=== PATIENT | female | born 1995 | race Caucasian/White ===

== ENCOUNTER 2016-03-01 20:14 | Emergency (ER) | payer OTHER ==
--- NOTE | 2016-03-01 22:46 | ED CLINICAL REPORT ---
Clinical Report - Physicians/Mid Levels [facility] [address] [place] [address] 03/01/2016 20:15 Patient: GABRIELA KNOX Arrived- By private vehicle. Historian- patient. HISTORY OF PRESENT ILLNESS Chief Complaint: THREE SEIZURES. This occurred today. Patient was last known well (this morning). Is no longer seizing. She has recovered. Not post-ictal in the emergency department. Seizure was witnessed. Seizure activity was brief and lasted minutes. No loss of consciousness, incontinence, apnea noted, confusion post-ictally or speech difficulty post-ictally. No weakness post-ictally, numbness post-ictally or headache post-ictally. Generalized motor activity observed. Not obtunded post-ictally. Did not lose pulse. No injuries noted. Did not recently change anticonvulsant medication or miss recent dose of anticonvulsant. Has not recently been ill. No recent sleep deprivation or alcohol recently. patient is currently 36 weeks . Similar symptoms previously: Recent medical care: Not recently seen/assessed. REVIEW OF SYSTEMS No fever, chest pain, palpitations, nausea or diarrhea. No black stools, skin rash, vomiting or bloody stools. All systems otherwise negative, except as recorded above. PAST HISTORY See nurses notes. Medications: No Seizure Medications. vits 1 daily . Allergies: No Known Drug Allergy. SOCIAL HISTORY Never smoker. No alcohol use or drug use. No recent travel. Is a local resident. FAMILY HISTORY Negative. ADDITIONAL NOTES The nursing notes have been reviewed. PHYSICAL EXAM Vital Signs: 03/01/2016 20:18 BP: 119/87. HR: 96. RR: 16. O2 saturation: 99%. Temp: 99.2 F. Pain level now: 7/10. Blood pressure normal. Oxygen saturation normal. Appearance: Alert. No acute distress. Eyes: Pupils equal, round and reactive to light. No nystagmus. Extraocular movements normal. ENT: Normal ENT inspection. TM's normal. Moist mucous membranes. Pharynx normal. Neck: Normal inspection. Neck supple. CVS: Normal heart rate and rhythm. Heart sounds normal. Pulses normal. Respiratory: No respiratory distress. Breath sounds normal. Abdomen: Soft and nontender. No organomegaly. (gravid uterus. Fundus palpable above the umbilicus and below the xiphoid process). Back: Normal inspection. Skin: Skin warm and dry. Normal skin color. No rash. Normal skin turgor. Extremities: Extremities exhibit normal ROM. No lower extremity edema. Neuro: Alert. Oriented X 3. Mood/affect normal. Speech normal. Cranial nerves normal (as tested). No cerebellar findings. No abnormal finger-nose test. Normal gait. No motor deficit. No sensory deficit. LABS, X-RAYS, AND EKG Abdominal Sonogram: (no signs of distress. size is lower thanexpected based on dates.). The study was independently viewed by me, interpreted by the radiologist and discussed with the radiologist. Study type: (third trimester limited OB). Laboratory Tests: CBC w Diff: (TIANA: 03/01/2016 21:15) ( [facility] [place] 03/01/2016 21:39) Final results Test Result Flag Units (Reference) WHITE BLOOD COUNT 12.1 H K/uL (4.5-11.5) RED BLOOD COUNT 4.16 M/uL (4.00-5.20) HEMOGLOBIN 11.9 L gm/dL (12.0-16.0) HEMATOCRIT 36.3 % (36.0-46.0) MEAN CELL VOLUME 87 fL (80-100) MEAN CORPUSCULAR HGB 29 pg (26-34) MEAN CORPUSCULAR HGB CONC 33 g/dL (31-37) RED CELL DISTRIBUTION WIDTH 13.5 % (11.6-14.8) PLATELET COUNT 262 K/uL (150-400) NEUTROPHIL % 71.6 % (50-75) LYMPH % 15.4 L % (25-40) MONO % 8.4 % (3-14) EOSINOPHIL % 4.3 H % (0-4) BASOPHIL % 0.3 % (0-2) CMP: (TIANA: 03/01/2016 21:15) ( [facility] 03/01/2016 22:21) Final results Test Result Flag Units (Reference) GLUCOSE 84 mg/dL (70-110) BUN 7 mg/dL (7-18) CREATININE 0.7 mg/dL (0.6-1.3) Estimated GFR >60 mL/min Estimated GFR- >60 mL/min Note: Persistent reduction over 3 months in eGFR<60 mL/min/1.73 m2 defines CKD. Patients with eGFR values>=60 mL/min/1.73 m2 may also have CKD if evidence ofpersistent proteinuria. Additional information may be foundat www.kidney.org. SODIUM 138 mmol/L (136-145) POTASSIUM 3.6 mmol/L (3.5-5.1) CHLORIDE 105 mmol/L (98-107) CARBON DIOXIDE 26 mmol/L (21-32) CALCIUM 8.2 L mg/dL (8.5-10.1) TOTAL PROTEIN 6.4 g/dL (6.4-8.2) ALBUMIN 2.8 L g/dL (3.3-5.0) BILIRUBIN, TOTAL 0.4 mg/dL (0.0-1.0) ALKALINE PHOSPHATASE 115 U/L (46-116) AST (SGOT) 13 L U/L (15-37) ALT (SGPT) 21 U/L (12-78) BETA HCG, QUANTITATIVE 47006 mIU/mL REFERENCE RANGE:Adult Males: <2 mIU/mLNon- Females: <6 mIU/mL Females:Approximate Approximate hCGGestational Age Range (mIU/mL) 0-1 week 0-501-2 weeks 40-3002-3 weeks 100-27611-3 weeks 500-06565-6 months 5,000-200,0002-3 months 10,000-100,0002nd trimester 3,000-50,0003rd trimester 1,000-50,000 . PROGRESS AND PROCEDURES Course of Care: The patient is a pleasant 20 oh female presenting for evaluation of seizures. Because the patient is in the third trimester of her , and is having seizures,will evaluate patient for signs of eclampsia. On further discussion with patient, patient has a history of seizures. Patient does not have any signs of hypertension here in the emergency Department. Help syndrome. Patient be monitored closely. Patient Is agreeable to the treatment and plan. Patient's workup is otherwise unremarkable for any signs of acute feel distress. heart tones are noted to be 150 and regular. The patient also reports having normal movements. Patient has not had any further incidents here in the emergency department that are concerning. The patient reportedly had a incident where she pushed the nursing call button and told the RN that she was having a seizure. Patient was evaluated not have any signs of seizure activity. Patient likely with pseudo-type seizures at this time. Patient does not have any signs of eclampsia or help syndrome. had discussion withOB/UX DESIGN MANAGER covering for Dr. KAT. Recommended Ativan as a safe alternative for the patient's seizure-like activity here in the emergency department. 1 mg of Ativan was given to the patient. Patient reports significant improvement in symptoms. Patient without any other concerns here in the emergency department. Workup is otherwise negative. I discussion with patient in regards to workup, diagnosis, home care, follow-up, and return precautions. All questions answered. The patient expressed an understanding of these instructions and was agreeable to them. Consult obtained. Obstetrics and gynecology. Disposition: Discharged. Condition: good. CLINICAL IMPRESSION 03/01/2016 20:18 BP: 119/87. HR: 96. RR: 16. O2 saturation: 99%. Temp: 99.2 F. Pain level now: 7/10. Blood pressure normal. Oxygen saturation normal. Generalized seizure. History of poorly controlled epilepsy (acute pseudo-type). INSTRUCTIONS Warnings: GENERAL WARNINGS: Return or contact your physician immediately if your condition worsens or changes unexpectedly, if not improving as expected, or if other problems arise. Specifically return if pain, vomiting, bleeding, breathing difficulty or fever. severe contractions, vaginal bleeding, problem with , worsening symptoms, or other concerns. Your Current Medications: CONTINUE TAKING THE FOLLOWING MEDICATIONS: No Seizure Medications*. vits* : 1 daily. Follow-up: Return to the emergency department as needed. Follow up with your doctor as scheduled. Reason for referral: recheck today's concerns and follow up care. Screening today revealed the patient's blood pressure to be in the normal range. The patient should follow up with a primary care provider for blood pressure management. (Electronically signed by Ilia Perdomo Dr. 03/02/2016 4:00)
--- NOTE | 2016-03-01 22:46 | ED ORDER SUMMARY ---
..... Patient: GABRIELA KNOX RL OrderSheet [facility] VisitID: [id number] [address] [place] [address] 20y, F Registration Date/Time: 03/01/2016 ORDER SHEET Weight: 79.3 kg (stated) Allergies: No Known Drug Allergy GENERAL ORDERS: Net Programmer Analyst (Continuous) (reported seizures) (21:05 03/01/2016 Hao Carrillo) (21:32 SBalde R.N.) CBC w Diff Urgent (21:03/01/2016 Hao Carrillo) (Ack 21:18 [employer] ER Tech1) (22:02 SBalde R.N.) CMP Urgent (21:03/01/2016 Hao Carrillo) (Ack 21:18 [employer] ER Tech1) (22:02 SBalde R.N.) UA-Culture if indicated Urgent (21:03/01/2016 Hao Carrillo) (Ack 21:18 [employer] ER Tech1) (23:56 HKone R.N.) PT with INR Urgent (21:05 03/01/2016 Hao Carrillo) (Ack 21:18 [facility] ER Tech1) (22:02 SBalde R.N.) PTT Urgent (21:05 03/01/2016 Hao Carrillo) (Ack 21:18 [facility] ER Tech1) (22:02 SBalde R.N.) Serum Quantitative Urgent (21:05 03/01/2016 Hao Carrillo) (Ack 21:18 [facility] ER Tech1) (22:02 SBalde R.N.) Pulse oximeter (21:05 03/01/2016 Hao Carrillo) (21:32 SBalde R.N.) US OB Limited (> 9 months ago) Urgent (21:03/01/2016 Hao Carrillo) (Ack 21:18 [employer] ER Tech1) (22:02 SBalde R.N.) (Cancelled: Other22:18 [facility] ER Tech1) Seizure Precautions (21:07 03/01/2016 Hao Carrillo) (21:32 SBalde R.N.) US OB 2nd Trimester (>9 MONTHS AGO) Urgent (22:17 03/01/2016 [facility] ER Tech1 verbal order read back to Hao Carrillo) (22:18 [facility] ER Tech1) Consult - FURNITURE PAINTER (Dr. Rivas) (22:24 03/01/2016 Hao Carrillo) (23:07 [facility] ER Gate Shear Operator) MEDICATION ORDERS: Phenergan IV 12.5 mg (HIGH ALERT MEDICATION, NOW) (21:26 03/01/2016 Hao Carrillo) (21:39 SBaldolga R.N.) IV FLUIDS: IV Saline Lock (21:05 03/01/2016 Hao Carrillo) (21:32 SBalde R.N.) Ativan IV 1 mg (HIGH ALERT MEDICATION, NOW) (23:01 03/01/2016 Hao Carrillo) (23:08 SBalde R.N.) ORDER SHEET NOTES: [Electronically signed by Sapphire Mills R.N. (23:56 03/01/2016)] [Electronically signed by Ilia Perdomo Dr. (04:00 03/02/2016)] [Electronically locked/signed by Sapphire Mills R.N. (23:56 03/01/2016)]
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
--- NOTE | 2016-03-01 22:46 | ED ORDER SUMMARY ---
..... Patient: GABRIELA KNOX RL OrderSheet [facility] VisitID: [id number] [address] [place] [address] 20y, F Registration Date/Time: 03/01/2016 ORDER SHEET Weight: 79.3 kg (stated) Allergies: No Known Drug Allergy GENERAL ORDERS: Technical Sales Representative (Continuous) (reported seizures) (21:05 03/01/2016 Hao Carrillo) (21:32 SBalde R.N.) CBC w Diff Urgent (21:03/01/2016 Hao Carrillo) (Ack 21:18 [employer] ER Tech1) (22:02 SBalde R.N.) CMP Urgent (21:03/01/2016 Hao Carrillo) (Ack 21:18 [employer] ER Tech1) (22:02 SBalde R.N.) UA-Culture if indicated Urgent (21:03/01/2016 Hao Carrillo) (Ack 21:18 [employer] ER Tech1) (23:56 HKone R.N.) PT with INR Urgent (21:05 03/01/2016 Hao Carrillo) (Ack 21:18 [facility] ER Tech1) (22:02 SBalde R.N.) PTT Urgent (21:05 03/01/2016 Hao Carrillo) (Ack 21:18 [facility] ER Tech1) (22:02 SBalde R.N.) Serum Quantitative Urgent (21:05 03/01/2016 Hao Carrillo) (Ack 21:18 [facility] ER Tech1) (22:02 SBalde R.N.) Pulse oximeter (21:05 03/01/2016 Hao Carrillo) (21:32 SBalde R.N.) US OB Limited (> 9 months ago) Urgent (21:03/01/2016 Hao Carrillo) (Ack 21:18 [employer] ER Tech1) (22:02 SBalde R.N.) (Cancelled: Other22:18 [facility] ER Tech1) Seizure Precautions (21:07 03/01/2016 Hao Carrillo) (21:32 SBalde R.N.) US OB 2nd Trimester (>9 MONTHS AGO) Urgent (22:17 03/01/2016 [facility] ER Tech1 verbal order read back to Hao Carrillo) (22:18 [facility] ER Tech1) Consult - MACHINERY REPAIR MAINTENANCE SUPERVISOR (Dr. Rivas) (22:24 03/01/2016 Hao Carrillo) (23:07 [facility] ER Cattle Brander) MEDICATION ORDERS: Phenergan IV 12.5 mg (HIGH ALERT MEDICATION, NOW) (21:26 03/01/2016 Hao Carrillo) (21:39 SBaldolga R.N.) IV FLUIDS: IV Saline Lock (21:05 03/01/2016 Hao Carrillo) (21:32 SBalde R.N.) Ativan IV 1 mg (HIGH ALERT MEDICATION, NOW) (23:01 03/01/2016 Hao Carrillo) (23:08 SBalde R.N.) ORDER SHEET NOTES: [Electronically signed by Sapphire Mills R.N. (23:56 03/01/2016)] [Electronically signed by Ilia Perdomo Dr. (04:00 03/02/2016)] [Electronically locked/signed by S[place]hire Mills R.N. (23:56 03/01/2016)]
--- NOTE | 2016-03-01 22:46 | ED NURSING NOTES ---
Clinical Report - Nurses [facility] [address] [place] [address] 03/01/2016 20:15 Patient: GABRIELA KNOX TRIAGE Triage time 20:15 Mar 01 2016. Acuity: LEVEL 3. Chief Complaint: SEIZURES (two episodes). Alert. JALIL COMA SCORE: Jalil Coma Scale: 15- eyes open spontaneously (4); best verbal response- oriented x 4 (5); best motor response- obeys commands (6). --20:28 Micah Clark R.N. 20:18 03/01/16. BP: 119/87. HR: 96. RR: 16. O2 saturation: 99% on room air. Temp: 99.2 F (oral). Pain level now: 7/10. Additional comments: (L) side of face. --20:28 Micah Clark R.N. Weight: 79.3 kg stated. Height/Length: 64 inches Per Patient. BMI: 30. Growth Chart Percentile: Weight: 93.2%. Height/Length: 44.9%. --20:21 Micah Clark R.N. Medications vits 1 daily . --20:23 Micah Clark R.N. No Seizure Medications. --20:24 Micah Clark R.N. Allergies No Known Drug Allergy. --20:23 Micah Clark R.N. History Arrived by private vehicle. Historian: patient. Accompanied by family and spouse and son. Primary physician (Janessa). ( Seizure-like activity x 2 today. Pt states that her siezures were gran mal seizures and she is 36 weeks ). Location of injuries: occiput. This occurred (about 15 hours ago). No recent change in anticonvulsant medication. 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 PAST MEDICAL HX: Immunizations: up-to-date. Last normal menstrual period- 36 weeks . 2. Para 1. Currently . SOCIAL HX: Smoker- current status unknown. History of drug use. (THC Butter--prn seizures). No alcohol use. No infectious disease exposure. ABUSE ASSESSMENT: No report of abuse. FALL RISK ASSESSMENT: Fall risk assessment completed. No fall risk identified. NUTRITIONAL RISK ASSESSMENT: The nutritional risk assessment revealed no deficiencies. FUNCTIONAL ASSESSMENT: Functional assessment: no impairments noted. LEARNING NEEDS ASSESSMENT: The learning needs assessment revealed no barriers. SKIN INTEGRITY ASSESSMENT: Skin integrity risk assessment completed. No skin integrity risk identified. --20:28 Micah Clark R.N. PROBLEMS: Burn. Seizure Disorder. Syncope. Urinary Calculi. UTI - Urinary Tract Infection. Abdominal Pain. Candler Duong Contractions. Hyperemesis Gravidarum. Pharyngitis. Constipation. Problems. . Bronchitis. Asthma. PID. --20:26 Micah Clark R.N. ADDITIONAL SURGERIES: Cyst Removed from skull. Hernia Repair. Inguinal Hernia Repair. --20:26 Micah Clark R.N. Interventions ID band on patient. To treatment room. --20:28 Micah Clark R.N. PHYSICAL ASSESSMENT Ambulatory to room. GENERAL / NEURO / PSYCH: Alert. Oriented X 4. Speech within normal limits. Patient appears well-nourished. HEENT: No facial asymmetry noted. Mucous membranes are pink. RESPIRATORY: Respirations not labored. CVS: Normal sinus rhythm noted. Capillary refill less than 2 seconds. GI / : Abdomen soft and nontender. SKIN: Skin intact. Skin is warm and dry. Normal skin turgor. --20:28 Micah Clark R.N. NURSING PROGRESS NOTES Patient gowned. Reassurance given to the patient and patient's family. Patient identifiers checked. Side rails up. Bed placed in lowest position. Brakes of bed on. Patient ready for evaluation- chart flagged and ED physician notified. --20:29 Micah Clark R.N. ( [facility] 154, heard in low center, above symphesis pubis). --20:54 Yue Castillo R.N. 21:28 03/01/2016 Site #1 started via IV in the right wrist with an 20g angiocath; two attempts. Blood drawn: rainbow set. Labeled in the presence of the patient. Saline lock flushed with 10 mL saline (started by DEVON Pitts). --21:29 Yue Castillo R.N. 21:39 03/01/2016 PHENERGAN (Promethazine HCl) IVP 12.5 mg given over 2 minute(s) via site #1. Allergies verified and confirmed 5 rights. IV patency established. IV site checked: no pain, redness, or swelling. IV flushed thoroughly pre- and post-medication administration. IVP given by RN. --21:39 Yue Castillo R.N. ( US here. Pt medicated.). --21:40 Yue Castillo R.N. ( seizure pads placed, pt concerned she may have an other seizure). --22:16 Kirk Brooks R.N. library monitor, pulse oximeter and NIBP monitor placed on patient; rn cardiac- Lead II; monitor alarms on. --22:43 Yue Castillo R.N. Informed about reason for wait. Patient waiting for evaluation. --22:43 Yue Castillo R.N. 23:02 03/01/16. BP: 110/74. HR: 85. RR: 20. O2 saturation: 98%. --23:02 Caroline Roche R.N. 23:02 03/01/16. Cardiac rhythm: normal sinus rhythm. ( Called to room by patient using call snow, states she was having a "mini episode" No seizure activity witnessed. Patient with eyes closed, respirations easy. vitals stable). --23:02 Caroline Roche R.N. 23:08 03/01/2016 Ativan (LORazepam) IVP 1 mg given over 2 minute(s) via site #1. Allergies verified, confirmed 5 rights and sedative warning given to the patient. IV patency established. IV site checked: no pain, redness, or swelling. IV flushed thoroughly pre- and post-medication administration. IVP given by RN. --23:08 Yue Castillo R.N. 23:18 03/01/16. BP: 109/69. HR: 100. RR: 18. O2 saturation: 98%. Pain level now 0/10. --23:19 Yeu Castillo R.N. DISPOSITION / DISCHARGE <<STRICKEN ENTRY-- 21:20 03/01/16. BP: deferred. HR: 80. RR: 20. O2 saturation: 100%. Temp: deferred. Pain level now: 0/10. --21:33 Gisselle Bhardwaj R.N. --END STRIKE>> Charted on wrong patient. --21:34 Gisselle Bhardwaj R.N. <<STRICKEN ENTRY-- 21:20. Condition at departure: improved and stable. No learning barriers present. Discharge instructions provided and reviewed with the parent. Reviewed medication(s) (tylenol or motrin). Reviewed wound care instructions. Parent verbalized understanding. Written instructions provided in Lithuanian. The patient was discharged home and accompanied by parent. She left the Emergency Department ambulatory and via private vehicle. Parent driving. --21:33 Gisselle Bhardwaj R.N. --END STRIKE>> Correction --21:34 Gisselle Bhardwaj R.N. 23:54 03/01/16. BP: 107/68. HR: 90. RR: 16 (unlabored). O2 saturation: 100% on room air. Temp: deferred. Pain level now: 0/10. --23:55 Sapphire Mills R.N. Departure time: 2354. Condition at departure: improved. No learning barriers present. Discharge instructions provided and reviewed with the patient. Patient verbalized understanding. Written instructions provided in Lithuanian. The patient was discharged by the physician. She was discharged home and accompanied by spouse. She left the Emergency Department ambulatory and via private vehicle. Spouse driving. Medication list reviewed and validated with the patient. --23:55 Sapphire Mills R.N. 23:55 03/01/2016 Site #1 removed upon discharge. Bandage applied. --23:55 Sapphire Mills R.N. Locked/Released at 03/01/2016 23:56 by Sapphire Mills R.N.
--- NOTE | 2016-03-01 23:49 | DIAGNOSTIC IMAGING REPORT ---
PROCEDURE: US 2ND TRIMESTER INDICATION: Seizures. Check well being. TECHNIQUE: [place] scale, color and spectral Doppler images of the gravid uterus. COMPARISON: Comparison is made to obstetric ultrasound 11/02/2015 ([facility] 03/21/2016). FINDINGS: Viable intrauterine in cephalic position. Placenta is posterior, there is no evidence of previa. Amniotic fluid index is 11.6 cm ( 20th percentile). Normal cervix length (3.6 cm). Cord Doppler ratios are normal (2.2 ). BPD 9.3 cm (38.0 weeks), HC 32.5 cm (36.7 weeks), AC 30.2 cm (34.0 weeks), FL 7.2 cm (37.0 weeks). IMPRESSION: 1. Viable intrauterine with overall composite menstrual age of 36.3 weeks (plus or minus 3 weeks). While overall growth is delayed by 1 week, there is relatively diminished abdominal growth (34.0 weeks), suggesting the possibility of asymmetric IUGR. 2. Posterior placenta. No evidence of previa. 3. Amniotic fluid index 11.6 cm (20th percentile). 4. Normal cord Doppler ratios (2.1). 5. Findings discussed with Dr. Ilia Perdomo.
--- NOTE | 2016-03-02 04:01 | ED DISCHARGE INSTRUCTIONS ---
Patient: GABRIELA KNOX General Instructions [facility] VisitID: [id number] [address] [place] [address] 20y, F Registration Date/Time: 03/01/2016 03/01/2016 20:18 BP: 119/87. HR: 96. RR: 16. O2 saturation: 99%. Temp: 99.2 F. Pain level now: 10. Blood pressure normal. Oxygen saturation normal. Generalized seizure. History of poorly controlled epilepsy (acute pseudo-type). INSTRUCTIONS Warnings: GENERAL WARNINGS: Return or contact your physician immediately if your condition worsens or changes unexpectedly, if not improving as expected, or if other problems arise. Specifically return if pain, vomiting, bleeding, breathing difficulty or fever. severe contractions, vaginal bleeding, problem with , worsening symptoms, or other concerns. Your Current Medications: CONTINUE TAKING THE FOLLOWING MEDICATIONS: No Seizure Medications*. vits* : 1 daily. Follow-up: Return to the emergency department as needed. Follow up with your doctor as scheduled. Reason for referral: recheck today's concerns and follow up care. Screening today revealed the patient's blood pressure to be in the normal range. The patient should follow up with a primary care provider for blood pressure management. ADDITIONAL INFORMATION Recurrent Seizure [Adult] You have had another seizure today. A common cause of recurrent seizure is missing doses of the seizure medicine. However, sometimes seizures are difficult to control even when you take the medicine correctly. If this is the case for you, it may be necessary to increase your dosage or add or change to another medicine. Home Care: For This Seizure: Since seizures are not predictable, you must avoid doing anything that might cause danger to you or others if you have another one. Therefore, until the seizures are under good control, take these precautions: Do not drive a car, bicycle or motorcycle Do not operate dangerous equipment such as power tools Use a shower instead of a bath Do not swim or climb (ladders, trees, roofs) Tell your close friends and relatives about your seizure and teach them what to do for you if it happens again. If you were prescribed a medicine to prevent seizures, take it exactly as directed. It does not work when taken on an "as needed" basis. Missing doses will increase the risk of having another seizure. If you miss a dose, take the missed dose as soon as you remember. If it is almost time for your next dose, skip the missed dose. Restart the medicine at your next scheduled time. Do not take extra medicine to make up the missed dose. Wear a "Medic-Alert" bracelet to advise emergency personnel of your condition. For Future Seizures: If You Are Alone: If you feel a seizure coming on, the best thing to do is to lie down on a bed or on the floor. Lie on your side, not on your back. This will prevent falling, promote drainage of oral secretions out of the mouth and prevent choking. Be sure that you are clear of any objects that might injure you during the seizure. Call for help if there is time. If Someone Is With You: If someone is with you before the seizure, they should help you get in a safe position and call for help. They should not try to force anything in your mouth once the seizure has begun. Doing this may cause injury. Follow Up with your doctor, or as directed by our staff. NOTE: For the safety of yourself and others on the road, certain states require that the treating doctor inform the Public Health Department of any adult who is treated for a seizure and is at risk of further seizures. In this case, the Department of Motor Vehicles (DMV) will be notified and a restriction will be placed on your drivers license until a doctor gives you medical clearance to drive again. Contact your treating doctor to find out if your state requires the reporting of patients with a seizures condition. Get Prompt Medical Attention if any of the following occur: Seizures occurring more often or becoming longer than usual Seizure lasting over 5 minutes No wake-up between seizures Remaining confused for more than 30 minutes after a seizure Injury during a seizure Fever over 100.4F (38.0C) Unusual irritability, drowsiness or confusion Stiff or painful neck Worsening headache You have been given the following additional information: Seizure, Recurrent [Adult] (Electronically signed by Ilia Perdomo Dr. 03/02/2016 4:00)
--- NOTE | 2016-03-02 04:01 | ED MED RECONCILIATION SUMMARY ---
Patient: CLAUDEAVERY GABRIELA DE ANDA Medication Reconciliation Report [facility] VisitID: [id number] [address] [place] [address] 20y, F Registration Date/Time: 03/01/2016 Weight: 79.3 kg Height/Length: 64 in. BMI: 30.0 ALLERGIES: No Known Drug Allergy The patient's Home Medications are listed below: CONTINUE TAKING THE FOLLOWING MEDICATIONS: No Seizure Medications vits 1 daily The source(s) of the original Home Medication information: Not obtained. The following Medications were given to the patient in the Emergency Department: PHENERGAN [IVP] IVP 12.5 mg, administered: 03/01/2016 9:39:00 PM Ativan [IVP] IVP 1 mg, administered: 03/01/2016 11:08:00 PM The following Medications were prescribed to the patient: None.
--- NOTE | 2016-03-02 04:01 | ED MED RECONCILIATION SUMMARY ---
Patient: CLAUDEAVERY GABRIELA DE ANDA Medication Reconciliation Report [facility] VisitID: [id number] [address] [place] [address] 20y, F Registration Date/Time: 03/01/2016 Weight: 79.3 kg Height/Length: 64 in. BMI: 30.0 ALLERGIES: No Known Drug Allergy The patient's Home Medications are listed below: CONTINUE TAKING THE FOLLOWING MEDICATIONS: No Seizure Medications vits 1 daily The source(s) of the original Home Medication information: Not obtained. The following Medications were given to the patient in the Emergency Department: PHENERGAN [IVP] IVP 12.5 mg, administered: 03/01/2016 9:39:00 PM Ativan [IVP] IVP 1 mg, administered: 03/01/2016 11:08:00 PM The following Medications were prescribed to the patient: None.
--- NOTE | 2016-03-02 04:01 | ED MAR SUMMARY ---
..... Medication Administration Record [facility] [address] [place] [address] Patient: GABRIELA KNOX Visit ID: [id number] 20y, F Weight: 79.3 kg Height/Length: 64 in BMI: 30 ALLERGIES: No Known Drug Allergy Given 21:39 03/01/2016 Yue Castillo R.N. Medication Administered: PHENERGAN [IVP] (PROMETHAZINE HCL), Dose: 12.5 mg IVP over 2 minute(s), Site: #1 right wrist. Medication Ordered: Phenergan IV 12.5 mg (HIGH ALERT MEDICATION, NOW). Given 23:08 03/01/2016 Yue Castillo R.N. Medication Administered: ATIVAN [IVP] (LORAZEPAM), Dose: 1 mg IVP over 2 minute(s), Site: #1 right wrist. Medication Ordered: Ativan IV 1 mg (HIGH ALERT MEDICATION, NOW).
--- NOTE | 2016-03-02 04:01 | ED MAR SUMMARY ---
..... Medication Administration Record [facility] [address] [place] [address] Patient: GABRIELA KNOX Visit ID: [id number] 20y, F Weight: 79.3 kg Height/Length: 64 in BMI: 30 ALLERGIES: No Known Drug Allergy Given 21:39 03/01/2016 Yue Castillo R.N. Medication Administered: PHENERGAN [IVP] (PROMETHAZINE HCL), Dose: 12.5 mg IVP over 2 minute(s), Site: #1 right wrist. Medication Ordered: Phenergan IV 12.5 mg (HIGH ALERT MEDICATION, NOW). Given 23:08 03/01/2016 Yue Castillo R.N. Medication Administered: ATIVAN [IVP] (LORAZEPAM), Dose: 1 mg IVP over 2 minute(s), Site: #1 right wrist. Medication Ordered: Ativan IV 1 mg (HIGH ALERT MEDICATION, NOW).
== END 2016-03-01 23:54 | disposition home or self-care (01) ==
LOC: EDSTATUS 20:14 → ED SRH 20:15
DX: O99.353 Diseases of the nervous system complicating pregnancy, third trimester (principal); G40.802 Other epilepsy, not intractable, without status epilepticus; Z3A.36 36 weeks gestation of pregnancy
CPT/HCPCS: 90100; 90197; 94001; 94060; 95059

== ENCOUNTER 2016-03-06 21:09 | Outpatient (CLI) | payer OTHER | END 2016-03-06 23:45 | disposition home or self-care (01) | LOC: OBC SRH 21:09 → OB SRH 21:12 | DX: O47.1 False labor at or after 37 completed weeks of gestation (principal); Z3A.37 37 weeks gestation of pregnancy | CPT/HCPCS: 40003; 90004 ==

== ENCOUNTER 2016-03-07 11:47 | Outpatient (CLI) | payer OTHER | END 2016-03-07 15:40 | disposition home or self-care (01) | LOC: OBC SRH 11:47 → OB SRH 11:50 | PROC: 4A0HXCZ Measurement of Products of Conception, Cardiac Rate, External Approach (ICD-10-PCS; principal; 2016-03-07) | DX: O47.1 False labor at or after 37 completed weeks of gestation (principal); Z3A.37 37 weeks gestation of pregnancy | CPT/HCPCS: 29248; 40003; 92237 ==

== ENCOUNTER 2016-03-20 08:08 | Inpatient (IN) | payer OTHER ==
[2016-03-20] VITALS (9 sets, daily range): BP systolic 96–112; BP diastolic 54–74
[2016-03-20] MEDS ORDERED: PRENATAL1 TAB PO (09:17)
[2016-03-21] VITALS: BP 97/53
[2016-03-21 04:30] VITALS: BP 106/66
--- NOTE | 2016-03-21 07:28 | NUR ---
ASSUMED CARE, PT WOULD LIKE TO BE D/C HOME AFTER LUNCH, USING TANI KIT, VICODAN EFFECTIVE, BREAST FEEDING WELL, FLOW SMALL, DENIES CLOTS,FF A 1 BELOW U, ENCOURGED PARENTS TO WORK ON THERE PAPERWORK
[2016-03-21 08:00] VITALS: BP 95/69
--- NOTE | 2016-03-21 12:08 | Provider's Discharge Care Plan ---
Problem, Goal, Plan Problem List 1. Normal labor Goals: Improve disease control Instructions: Follow up as needed
--- NOTE | 2016-03-21 12:08 | Provider's Discharge Care Plan ---
Problem, Goal, Plan Problem List 1. Normal labor Goals: Improve disease control Instructions: Follow up as needed
== END 2016-03-21 17:30 | disposition home or self-care (01) | DRG 560 ==
LOC: TRANS SRH 08:08 → OB SRH 08:12
PROVIDERS: ADMIT Obstetrics & Gynecology
PROC: 10E0XZZ Delivery of Products of Conception, External Approach (ICD-10-PCS; principal; 2016-03-20)
PROC: 3E0234Z Introduction of Serum, Toxoid and Vaccine into Muscle, Percutaneous Approach (ICD-10-PCS; 2016-03-21)
DX: O77.0 Labor and delivery complicated by meconium in amniotic fluid (principal); Z37.0 Single live birth; Z3A.39 39 weeks gestation of pregnancy; O99.824 Streptococcus B carrier state complicating childbirth; Z23 Encounter for immunization
CPT/HCPCS: 29255; 40011; 90074; 91162; 91163; 95059

== ENCOUNTER 2016-05-08 19:07 | Emergency (ER) | payer OTHER ==
[~2016-05-08 19:07] MED LIST: PRENATAL1 TAB PO
--- NOTE | 2016-05-08 22:46 | ED NURSING NOTES ---
Clinical Report - Nurses [facility] [address] [place] [address] 05/08/2016 19:07 Patient: GABRIELA KNOX TRIAGE Triage time 19:47. Acuity: LEVEL 4. Chief Complaint: (bleeding 6 weeks post delivery (had sex 3 weeks ago, worried about miscarriage)). Alert. No acute distress. --19:53 Lauren Garcia R.N. 19:47 05/08/16. BP: 126/88. HR: 111. RR: 18 (regular and unlabored). O2 saturation: 98% on room air. Temp: 98.2 F (oral). Rasheed-Richardson pain scale: 2/10. --19:53 Lauren Garcia R.N. Weight: 72.5 kg stated. Height/Length: 64 inches Per Patient. BMI: 27.5. Growth Chart Percentile: Weight: 86.9%. Height/Length: 44.9%. --19:52 Lauren Garcia R.N. Medications Albuterol Sulfate Inhalation. --19:52 Lauren Garcia R.N. Allergies No Known Drug Allergy. --19:51 Lauren Garcia R.N. History Arrived by private vehicle. Historian: patient. Primary physician (Miya Rivas)). Onset. (about 2 days ago). 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 PAST MEDICAL HX: Immunizations: up-to-date. SOCIAL HX: Light tobacco smoker (cigarette)- less than 1/2 a pack per day. Occasional alcohol use. History of drug use: marijuana. --19:53 Lauren Garcia R.N. PROBLEMS: PTSD. Seizure Disorder. Seizure. Syncope. Asthma. PID. --19:52 Lauren Garcia R.N. ADDITIONAL SURGERIES: Cyst Removed from skull. Hernia Repair. Inguinal Hernia Repair. --19:52 Lauren Garcia R.N. Interventions ID band on patient. To treatment room. --19:53 Lauren Garcia R.N. PHYSICAL ASSESSMENT Ambulatory to room. Patient gowned. GENERAL / NEURO / PSYCH: Alert. Oriented X 4. Appears in no acute distress. RESPIRATORY: Respirations not labored. CVS: Capillary refill less than 2 seconds. SKIN: Skin is warm and dry. --19:54 Lauren Garcia R.N. NURSING PROGRESS NOTES Head of bed elevated. Two patient identifiers checked. Call light placed in reach. Side rails up x 1. Bed placed in lowest position. Brakes of bed on. --19:54 Lauren Garcia R.N. Patient ready for evaluation- chart flagged. --19:54 Lauren Garcia R.N. Patient ID band checked for patient name and birthdate: patient confirmed. Instructions provided to collect clean catch urine and patient verbalized understanding. Clean catch urine collected with return of yellow-colored vesta-colored clear urine; sample sent to lab. Specimen labeled in the presence of the patient. --20:04 Lauren Garcia R.N. 20:30. Patient ID band checked for patient name and birthdate: patient confirmed. Blood samples drawn from the right antecubital space with syringe and 23g butterfly by nurse ; labeled in presence of the patient and sent to lab: red and purple top. --20:41 Lauren Garcia R.N. DISPOSITION / DISCHARGE 23:07 05/08/16. BP: 118/76. HR: 85. RR: 15. O2 saturation: 97% on room air. Temp: deferred. Rasheed-Richardson pain scale: 2/10. --23:07 Lauren Garcia R.N. Condition at departure: improved and stable. No learning barriers present. Discharge instructions provided and reviewed with the spouse. Patient verbalized understanding. Written instructions provided in Greek. The patient was discharged home and accompanied by film editor supervisor. She left the Emergency Department ambulatory and via private vehicle. Psychology Assistant driving. --23:07 Lauren Garcia R.N. Locked/Released at 05/09/2016 2:45 by Lauren Garcia R.N.
--- NOTE | 2016-05-08 22:46 | ED NURSING NOTES ---
Clinical Report - Nurses [facility] [address] [place] [address] 05/08/2016 19:07 Patient: GABRIELA KNOX TRIAGE Triage time 19:47. Acuity: LEVEL 4. Chief Complaint: (bleeding 6 weeks post delivery (had sex 3 weeks ago, worried about miscarriage)). Alert. No acute distress. --19:53 Lauren Garcia R.N. 19:47 05/08/16. BP: 126/88. HR: 111. RR: 18 (regular and unlabored). O2 saturation: 98% on room air. Temp: 98.2 F (oral). Rasheed-Richardson pain scale: 2/10. --19:53 Lauren Garcia R.N. Weight: 72.5 kg stated. Height/Length: 64 inches Per Patient. BMI: 27.5. Growth Chart Percentile: Weight: 86.9%. Height/Length: 44.9%. --19:52 Lauren Garcia R.N. Medications Albuterol Sulfate Inhalation. --19:52 Lauren Garcia R.N. Allergies No Known Drug Allergy. --19:51 Lauren Garcia R.N. History Arrived by private vehicle. Historian: patient. Primary physician (Miya Rivas)). Onset. (about 2 days ago). 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 PAST MEDICAL HX: Immunizations: up-to-date. SOCIAL HX: Light tobacco smoker (cigarette)- less than 1/2 a pack per day. Occasional alcohol use. History of drug use: marijuana. --19:53 Lauren Garcia R.N. PROBLEMS: PTSD. Seizure Disorder. Seizure. Syncope. Asthma. PID. --19:52 Lauren Gracia R.N. ADDITIONAL SURGERIES: Cyst Removed from skull. Hernia Repair. Inguinal Hernia Repair. --19:52 Lauren Garcia R.N. Interventions ID band on patient. To treatment room. --19:53 Lauren Garcia R.N. PHYSICAL ASSESSMENT Ambulatory to room. Patient gowned. GENERAL / NEURO / PSYCH: Alert. Oriented X 4. Appears in no acute distress. RESPIRATORY: Respirations not labored. CVS: Capillary refill less than 2 seconds. SKIN: Skin is warm and dry. --19:54 Lauren Garcia R.N. NURSING PROGRESS NOTES Head of bed elevated. Two patient identifiers checked. Call light placed in reach. Side rails up x 1. Bed placed in lowest position. Brakes of bed on. --19:54 Lauren Garcia R.N. Patient ready for evaluation- chart flagged. --19:54 Lauren Garcia R.N. Patient ID band checked for patient name and birthdate: patient confirmed. Instructions provided to collect clean catch urine and patient verbalized understanding. Clean catch urine collected with return of yellow-colored vesta-colored clear urine; sample sent to lab. Specimen labeled in the presence of the patient. --20:04 Lauren Garcia R.N. 20:30. Patient ID band checked for patient name and birthdate: patient confirmed. Blood samples drawn from the right antecubital space with syringe and 23g butterfly by nurse ; labeled in presence of the patient and sent to lab: red and purple top. --20:41 Lauren Garcia R.N. DISPOSITION / DISCHARGE 23:07 05/08/16. BP: 118/76. HR: 85. RR: 15. O2 saturation: 97% on room air. Temp: deferred. Rasheed-Richardson pain scale: 2/10. --23:07 Lauren Garcia R.N. Condition at departure: improved and stable. No learning barriers present. Discharge instructions provided and reviewed with the spouse. Patient verbalized understanding. Written instructions provided in Botswanan. The patient was discharged home and accompanied by social science manager. She left the Emergency Department ambulatory and via private vehicle. Jewelry Sorter driving. --23:07 Lauren Garcia R.N. Locked/Released at 05/09/2016 2:45 by Lauren Garcia R.N.
--- NOTE | 2016-05-08 22:46 | ED CLINICAL REPORT ---
Clinical Report - Physicians/Mid Levels Formerly [facility] [address] [place] [address] 05/08/2016 19:07 Patient: GABRIELA KNOX Time Seen: 2017; initial patient contact, initial documentation, patient care assumed. Arrived- By private vehicle. Historian- patient. HISTORY OF PRESENT ILLNESS Chief Complaint: VAGINAL BLEEDING. This started about 2 - 3 days ago and still present and worsening. The symptoms are described as severe. Modifying factors. Not worsened by anything. Not relieved by anything. The patient has had constant, crampy pelvic pain, described as "pain", with vaginal bleeding. She has had lower back pain and abnormal bleeding described as heavier than normal period and passing clots and tissue. No abdominal pain, vaginal pain, flank pain, vaginal discharge or pain with urination. No urinary frequency, urgency of urination or hematuria. Sexually active- unprotected sex and heterosexual. No exposure to sexually transmitted disease. Does not use control measures. (had baby 6 weeks ago, had sex 3 weeks ago, now bleeding and worried she is misscarrying). Denies current . Not receiving care. Similar symptoms previously: Once, as bad. ( similar to her miscarriage). Recent medical care: Not recently seen/assessed. REVIEW OF SYSTEMS No vomiting or diarrhea. She has had anorexia. a1 c/o rectal dc, x1 episode after she went to bathroom, pus was yellow and stringy, denies any rectal/anal intercourse, any up there, no hemorroids, and still denies any concern for std. All systems otherwise negative, except as recorded above. PAST HISTORY See nurses notes. ( PROBLEMS: PTSD. Seizure Disorder. Seizure. Syncope. Asthma. PID. --19:52 Lauren Garcia, R.N. ADDITIONAL SURGERIES: Cyst Removed from skull. Hernia Repair. Inguinal Hernia Repair. --19:52 Lauren Garcia, RLinda.). SOCIAL HISTORY Light tobacco smoker. Occasional alcohol use. History of occasional drug use: marijuana. No recent travel. Is a local resident. FAMILY HISTORY Negative. ADDITIONAL NOTES The nursing notes have been reviewed with agreement regarding the chief complaint, HPI, ROS, PMH and patient medications and allergies. PHYSICAL EXAM Vital Signs: 05/08/2016 19:47 BP: 126/88. HR: 111. RR: 18. O2 saturation: 98%. Temp: 98.2 F. Rasheed-Richardson pain scale: 2/10. Have been reviewed as abnormal and appear to be correct. Blood pressure normal. Tachycardic. Respiratory rate normal. Temperature normal. Oxygen saturation normal. Appearance: Alert. Oriented X3. No acute distress. HEENT: Normal external inspection. ENT: Pharynx normal. Neck: Neck supple. CVS: Heart sounds normal. Respiratory: No respiratory distress. Breath sounds normal. Chest nontender. Abdomen: Soft and nontender. Bowel sounds normal. No organomegaly. No mass. Back: Normal external inspection. : External inspection abnormal. Speculum exam abnormal. Moderate vaginal bleeding, consisting of dark blood with clots, via the cervical os. No vaginal bleeding from a cervical lesion or vaginal laceration. Bimanual exam normal. (speculum exam not done just visual and bimanual, due to active bleeding). Rectal: Rectal exam nontender. (heme not checked, external exam only, normal, no hemorrhoid, no abscess, no swelling, nontender, spincter tone intact, no dc). Skin: Skin warm and dry. Normal skin color. No rash. Normal skin turgor. Extremities: Extremities nontender. No lower extremity edema. Neuro: Oriented X 3. Mood/affect normal. No motor deficit. No sensory deficit. LABS, X-RAYS, AND EKG Pelvic Sonogram: Mild endometrial wall thickening is present. An ovarian cyst is present. . verbal report given by mobicanvas Hyun no signs of retained poc. Interpretation time: 22:38. Laboratory Tests: UA-Culture if indicated: (TIANA: 05/08/2016 20:00) ( MsgRcvd 05/08/2016 21:47) IP Test Result Flag Units (Reference) URINE COLOR YELLOW URINE APPEARANCE CLEAR URINE GLUCOSE NEGATIVE (NEGATIVE) URINE BILIRUBIN NEGATIVE (NEGATIVE) URINE KETONE 1+ (NEGATIVE) URINE SPECIFIC GRAVITY 1.025 (1.010-1.030) URINE PH 6.0 (5.0-8.0) URINE PROTEIN NEGATIVE (NEGATIVE) URINE UROBILINOGEN 0.2 EU/dL (0.2-1.0) URINE NITRITE NEGATIVE (NEGATIVE) URINE BLOOD 3+ (NEGATIVE) URINE LEUK ESTERASE NEGATIVE (NEGATIVE) Serum Qualitative: (TIANA: 05/08/2016 20:30) ( [facility] 05/08/2016 21:15) Final results Test Result Flag Units (Reference) , SERUM NEGATIVE CBC w Diff: (TIANA: 05/08/2016 20:30) ( [facility] 05/08/2016 20:55) Final results Test Result Flag Units (Reference) WHITE BLOOD COUNT 5.9 K/uL (4.5-11.5) RED BLOOD COUNT 5.23 H M/uL (4.00-5.20) HEMOGLOBIN 14.5 gm/dL (12.0-16.0) HEMATOCRIT 43.7 % (36.0-46.0) MEAN CELL VOLUME 84 fL (80-100) MEAN CORPUSCULAR HGB 28 pg (26-34) MEAN CORPUSCULAR HGB CONC 33 g/dL (31-37) RED CELL DISTRIBUTION WIDTH 16.1 H % (11.6-14.8) PLATELET COUNT 259 K/uL (150-400) NEUTROPHIL % 60.2 % (50-75) LYMPH % 21.3 L % (25-40) MONO % 13.8 % (3-14) EOSINOPHIL % 4.3 H % (0-4) BASOPHIL % 0.4 % (0-2) BMP: (TIANA: 05/08/2016 20:30) ( [facility] 05/08/2016 20:56) Final results Test Result Flag Units (Reference) GLUCOSE 93 mg/dL (70-110) BUN 7 mg/dL (7-18) CREATININE 0.7 mg/dL (0.6-1.3) Estimated GFR >60 mL/min Estimated GFR- >60 mL/min Note: Persistent reduction over 3 months in eGFR<60 mL/min/1.73 m2 defines CKD. Patients with eGFR values>=60 mL/min/1.73 m2 may also have CKD if evidence ofpersistent proteinuria. Additional information may be foundat www.kidney.org. SODIUM 140 mmol/L (136-145) POTASSIUM 4.1 mmol/L (3.5-5.1) CHLORIDE 106 mmol/L (98-107) CARBON DIOXIDE 18 L mmol/L (21-32) CALCIUM 9.0 mg/dL (8.5-10.1) . PROGRESS AND PROCEDURES Course of Care: 2154. labs and tx plan discussed, still awaiting us clarifying with [facility] when us eta is 22:28 05/08/16. US at bedside 22:38 05/08/16. US tech also informing pt does not want ivf Us results discussed with pt and dc plan, and verified, pt does not want ivf, wants to get home to baby, said she would push her fluids, and already drank cup of water here 2250. assisted pt with phone call then pt went to bathroom and came back out with toilet paper, saying she had a bowel movement and the dc was on the tp again, culture collected and agreed to send, did inform pt with bacteria in rectum, ecoli, and others culture maybe skewed, pt was ok with this info. Patient counseled in person regarding the patient's stable condition, test results and diagnosis. 21:55. Differential Diagnosis: I considered vaginitis, vaginal polyps, vaginal lesion, vaginal cancer, vulvar infection, ovarian cysts, polycystic disease of the ovaries, pelvic inflammatory disease, endometriosis, uterine fibroids, intrauterine , ectopic , incomplete , retained products of , endometritis, fibroids and dysfunctional uterine bleeding as a possible cause of vaginal bleeding in this patient. This is a partial list of diagnoses considered. Above considerations are based on history, physical exam, laboratory data and other information. Differential diagnosis was discussed with patient. Disposition: Discharged home in good and improved condition (22:46). Condition: good and stable. CLINICAL IMPRESSION Moderate dysfunctional uterine bleeding. INSTRUCTIONS Drink plenty of fluids. Warnings: GENERAL WARNINGS: Return or contact your physician immediately if your condition worsens or changes unexpectedly, if not improving as expected, or if other problems arise. Specifically return if problem worsens. Understanding of the discharge instructions verbalized by patient. Follow-up with: Pepito Rivas MD, Obstetrics/Gynecology, , [facility], [address] [place] [address] Follow up in about two days even if well. Call for an appointment. Summary of care provided to patient. (Electronically signed by Maude Shaffer A.R.N.P. 05/10/2016 13:23)
--- NOTE | 2016-05-08 22:46 | ED CLINICAL REPORT ---
Clinical Report - Physicians/Mid Levels [facility] [address] [place] [address] 05/08/2016 19:07 Patient: GABRIELA KNOX Time Seen: 2017; initial patient contact, initial documentation, patient care assumed. Arrived- By private vehicle. Historian- patient. HISTORY OF PRESENT ILLNESS Chief Complaint: VAGINAL BLEEDING. This started about 2 - 3 days ago and still present and worsening. The symptoms are described as severe. Modifying factors. Not worsened by anything. Not relieved by anything. The patient has had constant, crampy pelvic pain, described as "pain", with vaginal bleeding. She has had lower back pain and abnormal bleeding described as heavier than normal period and passing clots and tissue. No abdominal pain, vaginal pain, flank pain, vaginal discharge or pain with urination. No urinary frequency, urgency of urination or hematuria. Sexually active- unprotected sex and heterosexual. No exposure to sexually transmitted disease. Does not use control measures. (had baby 6 weeks ago, had sex 3 weeks ago, now bleeding and worried she is misscarrying). Denies current . Not receiving care. Similar symptoms previously: Once, as bad. ( similar to her miscarriage). Recent medical care: Not recently seen/assessed. REVIEW OF SYSTEMS No vomiting or diarrhea. She has had anorexia. a1 c/o rectal dc, x1 episode after she went to bathroom, pus was yellow and stringy, denies any rectal/anal intercourse, any up there, no hemorroids, and still denies any concern for std. All systems otherwise negative, except as recorded above. PAST HISTORY See nurses notes. ( PROBLEMS: PTSD. Seizure Disorder. Seizure. Syncope. Asthma. PID. --19:52 Lauren Garcia, R.N. ADDITIONAL SURGERIES: Cyst Removed from skull. Hernia Repair. Inguinal Hernia Repair. --19:52 Lauren Garcia, RLinda.). SOCIAL HISTORY Light tobacco smoker. Occasional alcohol use. History of occasional drug use: marijuana. No recent travel. Is a local resident. FAMILY HISTORY Negative. ADDITIONAL NOTES The nursing notes have been reviewed with agreement regarding the chief complaint, HPI, ROS, PMH and patient medications and allergies. PHYSICAL EXAM Vital Signs: 05/08/2016 19:47 BP: 126/88. HR: 111. RR: 18. O2 saturation: 98%. Temp: 98.2 F. Rasheed-Richardson pain scale: 2/10. Have been reviewed as abnormal and appear to be correct. Blood pressure normal. Tachycardic. Respiratory rate normal. Temperature normal. Oxygen saturation normal. Appearance: Alert. Oriented X3. No acute distress. HEENT: Normal external inspection. ENT: Pharynx normal. Neck: Neck supple. CVS: Heart sounds normal. Respiratory: No respiratory distress. Breath sounds normal. Chest nontender. Abdomen: Soft and nontender. Bowel sounds normal. No organomegaly. No mass. Back: Normal external inspection. : External inspection abnormal. Speculum exam abnormal. Moderate vaginal bleeding, consisting of dark blood with clots, via the cervical os. No vaginal bleeding from a cervical lesion or vaginal laceration. Bimanual exam normal. (speculum exam not done just visual and bimanual, due to active bleeding). Rectal: Rectal exam nontender. (heme not checked, external exam only, normal, no hemorrhoid, no abscess, no swelling, nontender, spincter tone intact, no dc). Skin: Skin warm and dry. Normal skin color. No rash. Normal skin turgor. Extremities: Extremities nontender. No lower extremity edema. Neuro: Oriented X 3. Mood/affect normal. No motor deficit. No sensory deficit. LABS, X-RAYS, AND EKG Pelvic Sonogram: Mild endometrial wall thickening is present. An ovarian cyst is present. . verbal report given by Saborstudio Hyun no signs of retained poc. Interpretation time: 22:38. Laboratory Tests: UA-Culture if indicated: (TIANA: 05/08/2016 20:00) ( MsgRcvd 05/08/2016 21:47) IP Test Result Flag Units (Reference) URINE COLOR YELLOW URINE APPEARANCE CLEAR URINE GLUCOSE NEGATIVE (NEGATIVE) URINE BILIRUBIN NEGATIVE (NEGATIVE) URINE KETONE 1+ (NEGATIVE) URINE SPECIFIC GRAVITY 1.025 (1.010-1.030) URINE PH 6.0 (5.0-8.0) URINE PROTEIN NEGATIVE (NEGATIVE) URINE UROBILINOGEN 0.2 EU/dL (0.2-1.0) URINE NITRITE NEGATIVE (NEGATIVE) URINE BLOOD 3+ (NEGATIVE) URINE LEUK ESTERASE NEGATIVE (NEGATIVE) Serum Qualitative: (TIANA: 05/08/2016 20:30) ( [facility] 05/08/2016 21:15) Final results Test Result Flag Units (Reference) , SERUM NEGATIVE CBC w Diff: (TIANA: 05/08/2016 20:30) ( [facility] 05/08/2016 20:55) Final results Test Result Flag Units (Reference) WHITE BLOOD COUNT 5.9 K/uL (4.5-11.5) RED BLOOD COUNT 5.23 H M/uL (4.00-5.20) HEMOGLOBIN 14.5 gm/dL (12.0-16.0) HEMATOCRIT 43.7 % (36.0-46.0) MEAN CELL VOLUME 84 fL (80-100) MEAN CORPUSCULAR HGB 28 pg (26-34) MEAN CORPUSCULAR HGB CONC 33 g/dL (31-37) RED CELL DISTRIBUTION WIDTH 16.1 H % (11.6-14.8) PLATELET COUNT 259 K/uL (150-400) NEUTROPHIL % 60.2 % (50-75) LYMPH % 21.3 L % (25-40) MONO % 13.8 % (3-14) EOSINOPHIL % 4.3 H % (0-4) BASOPHIL % 0.4 % (0-2) BMP: (TIANA: 05/08/2016 20:30) ( [facility] 05/08/2016 20:56) Final results Test Result Flag Units (Reference) GLUCOSE 93 mg/dL (70-110) BUN 7 mg/dL (7-18) CREATININE 0.7 mg/dL (0.6-1.3) Estimated GFR >60 mL/min Estimated GFR- >60 mL/min Note: Persistent reduction over 3 months in eGFR<60 mL/min/1.73 m2 defines CKD. Patients with eGFR values>=60 mL/min/1.73 m2 may also have CKD if evidence ofpersistent proteinuria. Additional information may be foundat www.kidney.org. SODIUM 140 mmol/L (136-145) POTASSIUM 4.1 mmol/L (3.5-5.1) CHLORIDE 106 mmol/L (98-107) CARBON DIOXIDE 18 L mmol/L (21-32) CALCIUM 9.0 mg/dL (8.5-10.1) . PROGRESS AND PROCEDURES Course of Care: 2154. labs and tx plan discussed, still [place] [facility] [place] eta is 22:28 05/08/16. US at bedside 22:38 05/08/16. US tech also informing pt does not want ivf Us results discussed with pt and dc plan, and verified, pt does not want ivf, wants to get home to baby, said she would push her fluids, and already drank cup of water here 2250. assisted pt with phone call then pt went to bathroom and came back out with toilet paper, saying she had a bowel movement and the dc was on the tp again, culture collected and agreed to send, did inform pt with bacteria in rectum, ecoli, and others culture maybe skewed, pt was ok with this info. Patient counseled in person regarding the patient's stable condition, test results and diagnosis. 21:55. Differential Diagnosis: I considered vaginitis, vaginal polyps, vaginal lesion, vaginal cancer, vulvar infection, ovarian cysts, polycystic disease of the ovaries, pelvic inflammatory disease, endometriosis, uterine fibroids, intrauterine , ectopic , incomplete , retained products of , endometritis, fibroids and dysfunctional uterine bleeding as a possible cause of vaginal bleeding in this patient. This is a partial list of diagnoses considered. Above considerations are based on history, physical exam, laboratory data and other information. Differential diagnosis was discussed with patient. Disposition: Discharged home in good and improved condition (22:46). Condition: good and stable. CLINICAL IMPRESSION Moderate dysfunctional uterine bleeding. INSTRUCTIONS Drink plenty of fluids. Warnings: GENERAL WARNINGS: Return or contact your physician immediately if your condition worsens or changes unexpectedly, if not improving as expected, or if other problems arise. Specifically return if problem worsens. Understanding of the discharge instructions verbalized by patient. Follow-up with: Pepito Rivas MD, Obstetrics/Gynecology, , [facility], [address] [place] [address] Follow up in about two days even if well. Call for an appointment. Summary of care provided to patient. (Electronically signed by Maude Shaffer A.R.N.P. 05/10/2016 13:23)
--- NOTE | 2016-05-08 22:46 | ED ORDER SUMMARY ---
..... Patient: GABRIELA KNOX RL OrderSheet [facility] VisitID: [id number] [place] [address] 20y, F Registration Date/Time: 05/08/2016 ORDER SHEET Weight: 72.5 kg (stated) Allergies: No Known Drug Allergy GENERAL ORDERS: US Pelvic Complete w Transvag Urgent (20:29 05/08/2016 HBivens A.R.N.P.) (Ack 20:32 ALawrence ER Tech1) (22:36 ALawrence ER Tech1) CBC w Diff Urgent (20:30 05/08/2016 HBivens A.R.N.P.) (Ack 20:32 ALawrence ER Tech1) (20:57 RCollier R.N.) BMP Urgent (20:30 05/08/2016 HBivens A.R.N.P.) (Ack 20:32 ALawrence ER Tech1) (20:57 RCollier R.N.) UA-Culture if indicated Urgent (20:30 05/08/2016 HBivens A.R.N.P.) (Ack 20:32 ALawrence ER Tech1) (20:33 ALawrence ER Tech1) Serum Qualitative Urgent (20:30 05/08/2016 HBivens A.R.N.P.) (Ack 20:32 ALawrence ER Tech1) (20:33 ALawrence ER Tech1) Culture, Body Fluid (Body Fluid) (anus) Urgent (22:58 05/08/2016 HBivens A.R.N.P.) (2:45 RCollier R.N.) MEDICATION ORDERS: IV FLUIDS: IV NS : initial bolus 1000 mL (1000 mL/hr), then none - (NOW) (21:55 05/08/2016 HBivens A.R.N.P.) (Ack 22:00 RCollier R.N.) (Cancelled: Patient Refusal2:45 RCollier R.N.) ORDER SHEET NOTES: [Electronically signed by Lauren Garcia R.N. (02:45 05/09/2016)] [Electronically signed by Maude Shaffer (13:23 05/10/2016)] [Electronically locked/signed by Lauren Garcia R.N. (02:45 05/09/2016)]
--- NOTE | 2016-05-08 22:46 | ED ORDER SUMMARY ---
..... Patient: GABRIELA KNOX RL OrderSheet [facility] VisitID: [id number] [place] [address] 20y, F Registration Date/Time: 05/08/2016 ORDER SHEET Weight: 72.5 kg (stated) Allergies: No Known Drug Allergy GENERAL ORDERS: US Pelvic Complete w Transvag Urgent (20:29 05/08/2016 HBivens A.R.N.P.) (Ack 20:32 ALawrence ER Tech1) (22:36 ALawrence ER Tech1) CBC w Diff Urgent (20:30 05/08/2016 HBivens A.R.N.P.) (Ack 20:32 ALawrence ER Tech1) (20:57 RCollier R.N.) BMP Urgent (20:30 05/08/2016 HBivens A.R.N.P.) (Ack 20:32 ALawrence ER Tech1) (20:57 RCollier R.N.) UA-Culture if indicated Urgent (20:30 05/08/2016 HBivens A.R.N.P.) (Ack 20:32 ALawrence ER Tech1) (20:33 ALawrence ER Tech1) Serum Qualitative Urgent (20:30 05/08/2016 HBivens A.R.N.P.) (Ack 20:32 ALawrence ER Tech1) (20:33 ALawrence ER Tech1) Culture, Body Fluid (Body Fluid) (anus) Urgent (22:58 05/08/2016 HBivens A.R.N.P.) (2:45 RCollier R.N.) MEDICATION ORDERS: IV FLUIDS: IV NS : initial bolus 1000 mL (1000 mL/hr), then none - (NOW) (21:55 05/08/2016 HBivens A.R.N.P.) (Ack 22:00 RCollier R.N.) (Cancelled: Patient Refusal2:45 RCollier R.N.) ORDER SHEET NOTES: [Electronically signed by Lauren Garcia R.N. (02:45 05/09/2016)] [Electronically signed by Maude Shaffer (13:23 05/10/2016)] [Electronically locked/signed by Lauren Garcia R.N. (02:45 05/09/2016)]
--- NOTE | 2016-05-08 23:48 | DIAGNOSTIC IMAGING REPORT ---
PROCEDURE: US COMPLETE PELVIC W/TRANSVAG INDICATION: ABNORMAL BLEEDING TECHNIQUE: Transabdominal and endovaginal jurado scale and color Doppler sonographic images of the female pelvis were obtained. COMPARISON: None. FINDINGS: TRANSABDOMINAL SCANS: Retroverted uterus measures about 7.9 cm in length. Normal contour and echotexture. Normal adnexa without suspicious mass. The visible portion of the urinary bladder is normal. No significant free pelvic fluid. TRANSVAGINAL SCANS: The uterus is retroverted in position and has a homogeneous myometrial echotexture. Normal vascularity. The endometrium is between 10 and 14 mm in thickness. Minimally heterogeneous endometrial stripe. No discrete fluid collections. Normal vascularity. No focal mass. The right ovary measures 2.9 x 2.9 x 3.2 cm and contains a septated dominant follicle measuring 2.3 cm. There is normal arterial and venous ovarian flow present. The left ovary measures 3.0 x 1.0 x 1.2 cm and also has a normal follicular echotexture and normal vascularity. No suspicious adnexal masses or free pelvic fluid. IMPRESSION: 1. Endometrium at the upper limits of normal in mildly heterogeneous but no focal vascularity or findings to suggest retained products of conception. 2. Normal ovaries.
--- NOTE | 2016-05-10 13:23 | ED MED RECONCILIATION SUMMARY ---
Patient: CLAUDEAVERY GABRIELA DE ANDA Medication Reconciliation Report [facility] VisitID: [id number] [address] [place] [address] 20y, F Registration Date/Time: 05/08/2016 Weight: 72.5 kg Height/Length: 64 in. BMI: 27.5 ALLERGIES: No Known Drug Allergy The patient's Home Medications are listed below: THE FOLLOWING MEDICATIONS NEED TO BE RECONCILED: Albuterol Sulfate Inhalation The source(s) of the original Home Medication information: Not obtained. The following Medications were given to the patient in the Emergency Department: None. The following Medications were prescribed to the patient: None.
--- NOTE | 2016-05-10 13:23 | ED MAR SUMMARY ---
..... Medication Administration Record [facility] [address], [place] [id number] Patient: CLAUDEAVERY GABRIELA DE ANDA Visit ID: [id number] 20y, F Weight: 72.5 kg Height/Length: 64 in BMI: 27.5 ALLERGIES: No Known Drug Allergy
--- NOTE | 2016-05-10 13:23 | ED DISCHARGE INSTRUCTIONS ---
Patient: GABRIELA KNOX General Instructions [facility] VisitID: [id number] [place] [address] 20y, F Registration Date/Time: 05/08/2016 Moderate dysfunctional uterine bleeding. INSTRUCTIONS Drink plenty of fluids. Warnings: GENERAL WARNINGS: Return or contact your physician immediately if your condition worsens or changes unexpectedly, if not improving as expected, or if other problems arise. Specifically return if problem worsens. Understanding of the discharge instructions verbalized by patient. Follow-up with: Pepito Rivas MD, Obstetrics/Gynecology, , [facility], [address] [place] [address] Follow up in about two days even if well. Call for an appointment. Summary of care provided to patient. ADDITIONAL INFORMATION Irregular Vaginal Bleeding This is a condition in which bleeding occurs at unexpected times of the month. The bleeding may be heavier or metal trim erector than usual. Heavy bleeding may lead to anemia. If severe enough, anemia may cause you to look pale and feel weak or fatigued. You might have shortness of breath even with little exertion. The female hormones produced in your body every month may be out of balance. This imbalance leads to bleeding. Causes could include an ovarian cyst, emotional stress, pelvic infection. Failure to ovulate during your last cycle may also cause this problem. Home Care: If bleeding is heavy, rest and avoid heavy exertion. You may use acetaminophen (Tylenol) or ibuprofen (Motrin, Advil) to control pain, unless another pain medicine was prescribed. [NOTE: If you have chronic liver or kidney disease or ever had a stomach ulcer or GI bleeding, talk with your doctor before using these medicines.] Iron supplements may be prescribed for anemia. It takes about 4-6 weeks for the iron to correct the anemia. Take the medicine as directed. See your doctor for a repeat blood test after you finish the iron treatment. If hormones were prescribed to control your bleeding, take them exactly as directed. If you were prescribed a medicine called Provera (medroxyprogesterone), the bleeding should stop while you are taking it. Another period will start a few days after you finish the medicine. Follow Up with your doctor, or as advised, within the next 1-2 days if heavy bleeding continues. Otherwise, follow up within the next 1-2 weeks. Get Prompt Medical Attention if any of the following occur: Bleeding becomes heavy (soaking one pad an hour for three hours) Fever of 100.4F (38C) or higher, or as directed by your healthcare provider Increase in abdominal pain Weakness, dizziness or fainting You have been given the following additional information: Dysfunctional Uterine Bleeding (Electronically signed by Maude Shaffer A.R.N.P. 05/10/2016 13:23)
--- NOTE | 2016-05-10 13:23 | ED MAR SUMMARY ---
..... Medication Administration Record [facility] [address], [place] [id number] Patient: CLAUDEAVERY GABRIELA DE ANDA Visit ID: [id number] 20y, F Weight: 72.5 kg Height/Length: 64 in BMI: 27.5 ALLERGIES: No Known Drug Allergy
--- NOTE | 2016-05-10 13:23 | ED DISCHARGE INSTRUCTIONS ---
Patient: GABRIELA KNOX General Instructions [facility] VisitID: [id number] [place] [address] 20y, F Registration Date/Time: 05/08/2016 Moderate dysfunctional uterine bleeding. INSTRUCTIONS Drink plenty of fluids. Warnings: GENERAL WARNINGS: Return or contact your physician immediately if your condition worsens or changes unexpectedly, if not improving as expected, or if other problems arise. Specifically return if problem worsens. Understanding of the discharge instructions verbalized by patient. Follow-up with: Pepito Rivas MD, Obstetrics/Gynecology, , [facility], [address] [place] [address] Follow up in about two days even if well. Call for an appointment. Summary of care provided to patient. ADDITIONAL INFORMATION Irregular Vaginal Bleeding This is a condition in which bleeding occurs at unexpected times of the month. The bleeding may be heavier or interior design instructor than usual. Heavy bleeding may lead to anemia. If severe enough, anemia may cause you to look pale and feel weak or fatigued. You might have shortness of breath even with little exertion. The female hormones produced in your body every month may be out of balance. This imbalance leads to bleeding. Causes could include an ovarian cyst, emotional stress, pelvic infection. Failure to ovulate during your last cycle may also cause this problem. Home Care: If bleeding is heavy, rest and avoid heavy exertion. You may use acetaminophen (Tylenol) or ibuprofen (Motrin, Advil) to control pain, unless another pain medicine was prescribed. [NOTE: If you have chronic liver or kidney disease or ever had a stomach ulcer or GI bleeding, talk with your doctor before using these medicines.] Iron supplements may be prescribed for anemia. It takes about 4-6 weeks for the iron to correct the anemia. Take the medicine as directed. See your doctor for a repeat blood test after you finish the iron treatment. If hormones were prescribed to control your bleeding, take them exactly as directed. If you were prescribed a medicine called Provera (medroxyprogesterone), the bleeding should stop while you are taking it. Another period will start a few days after you finish the medicine. Follow Up with your doctor, or as advised, within the next 1-2 days if heavy bleeding continues. Otherwise, follow up within the next 1-2 weeks. Get Prompt Medical Attention if any of the following occur: Bleeding becomes heavy (soaking one pad an hour for three hours) Fever of 100.4F (38C) or higher, or as directed by your healthcare provider Increase in abdominal pain Weakness, dizziness or fainting You have been given the following additional information: Dysfunctional Uterine Bleeding (Electronically signed by Maude Shaffer A.R.N.P. 05/10/2016 13:23)
--- NOTE | 2016-05-10 13:23 | ED MED RECONCILIATION SUMMARY ---
Patient: CLAUDEAVERY GABRIELA DE ANDA Medication Reconciliation Report [facility] VisitID: [id number] [address] [place] [address] 20y, F Registration Date/Time: 05/08/2016 Weight: 72.5 kg Height/Length: 64 in. BMI: 27.5 ALLERGIES: No Known Drug Allergy The patient's Home Medications are listed below: THE FOLLOWING MEDICATIONS NEED TO BE RECONCILED: Albuterol Sulfate Inhalation The source(s) of the original Home Medication information: Not obtained. The following Medications were given to the patient in the Emergency Department: None. The following Medications were prescribed to the patient: None.
== END 2016-05-08 23:00 | disposition home or self-care (01) ==
LOC: ED SRH 19:07
DX: N93.9 Abnormal uterine and vaginal bleeding, unspecified (principal)
CPT/HCPCS: 90004; 90047; 90133; 90309; 90470; 90627; 95059; 98428

== ENCOUNTER 2016-08-20 20:00 | Emergency (ER) | payer OTHER ==
--- NOTE | 2016-08-20 21:23 | DIAGNOSTIC IMAGING REPORT ---
PROCEDURE: CT HEAD WITHOUT CONTRAST INDICATION: Seizure. TECHNIQUE: Noncontrast axial images with sagittal and coronal reformations. COMPARISON: Head CT 04/28/2015. FINDINGS: Sulci, ventricular system, and brain parenchyma are normal. No evidence of acute intracranial process. Visualized mastoids and sinuses are clear. No significant interval change. IMPRESSION: 1. Negative non-enhanced head CT. 2. Findings discussed with Dr. Perdomo at 09:23 p[address]m.[facility] Standard Time
--- NOTE | 2016-08-20 21:23 | DIAGNOSTIC IMAGING REPORT ---
PROCEDURE: CT HEAD WITHOUT CONTRAST INDICATION: Seizure. TECHNIQUE: Noncontrast axial images with sagittal and coronal reformations. COMPARISON: Head CT 04/28/2015. FINDINGS: Sulci, ventricular system, and brain parenchyma are normal. No evidence of acute intracranial process. Visualized mastoids and sinuses are clear. No significant interval change. IMPRESSION: 1. Negative non-enhanced head CT. 2. Findings discussed with Dr. Perdomo at 09:23 p.m.[facility] Standard Time
--- NOTE | 2016-08-20 23:56 | ED CLINICAL REPORT ---
Clinical Report - Physicians/Mid Levels [facility] [address] [place] [address] 08/20/2016 19:59 Patient: GABRIELA KNOX Time Seen; initial patient contact. Arrived- By private vehicle. Historian- patient. CPT: ER phys charges level 4 (#316084). HISTORY OF PRESENT ILLNESS Chief Complaint: TWO SEIZURES. Patient was last known well (earlier this afternoon). This occurred today. Is no longer seizing. She has recovered. Not post-ictal in the emergency department. Seizure was witnessed. Seizure activity lasted (one lasted 4 minutes then went back to baseline then had another episode that lasted a few minutes). The patient lost consciousness. Generalized motor activity observed. No injuries noted. Did not recently change anticonvulsant medication. Has not recently been ill. No alcohol recently. describes post-ictal state after second seizure as well. encouraged to seek help by boyfriend. describes hx of 'pseudoseizures'. states she had a work up in which she describes work up where she had a EEG which is where she came with her diagnosis. told it was due to PTSD. Similar symptoms previously: Many times. Recent medical care: Not recently seen/assessed. REVIEW OF SYSTEMS No fever, chest pain, palpitations, cough or difficulty breathing. No sore throat, abdominal pain, nausea, diarrhea or skin rash. No vomiting. All systems otherwise negative, except as recorded above. PAST HISTORY See nurses notes. SOCIAL HISTORY Smoker- current status unknown. No alcohol use or drug use. No recent travel. Is a local resident. ADDITIONAL NOTES The nursing notes have been reviewed. PHYSICAL EXAM Vital Signs: 08/20/2016 20:04 BP: 126/86. HR: 76. RR: 20. O2 saturation: 99%. Temp: 99 F. Pain level now: 8/10. Appearance: Alert. No acute distress. Eyes: Pupils equal, round and reactive to light. No nystagmus. Extraocular movements normal. ENT: Normal ENT inspection. TM's normal. Moist mucous membranes. Pharynx normal. Neck: Normal inspection. Neck supple. (left posterior. no midline. good AROM.). CVS: Normal heart rate and rhythm. Heart sounds normal. Pulses normal. Respiratory: No respiratory distress. Breath sounds normal. No rales, wheezes or rhonchi. (non-tender). Abdomen: Soft and nontender. No organomegaly. Back: Normal inspection. (baseline left tenderness over the left SI joint). Skin: Skin warm and dry. Normal skin color. No rash. Normal skin turgor. Extremities: Extremities exhibit normal ROM. No lower extremity edema. Neuro: Alert. Oriented X 3. Mood/affect normal. Speech normal. Cranial nerves normal (as tested). No cerebellar findings. No motor deficit. No sensory deficit. Reflexes normal. LABS, X-RAYS, AND EKG CT Head: No acute disease. Laboratory Tests: UA-Culture if indicated: (TIANA: 08/20/2016 23:10) ( [facility] 08/20/2016 23:31) Final results Test Result Flag Units (Reference) URINE COLOR YELLOW URINE APPEARANCE CLEAR URINE GLUCOSE NEGATIVE (NEGATIVE) URINE BILIRUBIN NEGATIVE (NEGATIVE) URINE KETONE NEGATIVE (NEGATIVE) URINE SPECIFIC GRAVITY 1.015 (1.010-1.030) URINE PH 8.0 (5.0-8.0) URINE PROTEIN NEGATIVE (NEGATIVE) URINE UROBILINOGEN 0.2 EU/dL (0.2-1.0) URINE NITRITE NEGATIVE (NEGATIVE) URINE BLOOD NEGATIVE (NEGATIVE) URINE LEUK ESTERASE NEGATIVE (NEGATIVE) URINE RBC 1-3 rbc/hpf (0-1) URINE WBC 0-1 wbc/hpf (0-1) URINE EPITHELIAL CELLS 3-5 EPI/hpf (0-5) URINE BACTERIA NONE SEEN (NONE SEEN) URINE COMMENT CULT NOT INDICATED URINE CULTURES ARE SET-UP BASED ON THE FOLLOWING CRITERIA:POSITIVE NITRITEPOSITIVE LEUKOCYTE ESTERASEGREATER THAN 10 WHITE BLOOD CELLSMODERATE (2+) OR GREATER BACTERIA Urine: (TIANA: 08/20/2016 23:10) ( [facility] 08/20/2016 23:24) Final results Test Result Flag Units (Reference) URINE NEGATIVE CBC w Diff: (TIANA: 08/20/2016 20:07) ( [facility] 08/20/2016 20:42) Final results Test Result Flag Units (Reference) WHITE BLOOD COUNT 6.5 K/uL (4.5-11.5) RED BLOOD COUNT 4.73 M/uL (4.00-5.20) HEMOGLOBIN 13.9 gm/dL (12.0-16.0) HEMATOCRIT 41.2 % (36.0-46.0) MEAN CELL VOLUME 87 fL (80-100) MEAN CORPUSCULAR HGB 30 pg (26-34) MEAN CORPUSCULAR HGB CONC 34 g/dL (31-37) RED CELL DISTRIBUTION WIDTH 13.5 % (11.6-14.8) PLATELET COUNT 273 K/uL (150-400) NEUTROPHIL % 56.5 % (50-75) LYMPH % 28.0 % (25-40) MONO % 8.1 % (3-14) EOSINOPHIL % 7.1 H % (0-4) BASOPHIL % 0.3 % (0-2) Urine Drug Screen: (TIANA: 08/20/2016 23:10) ( MsgRcvd 08/20/2016 23:51) Final results Test Result Flag Units (Reference) AMPHETAMINE/METHAMPHETAMINE NEGATIVE (NEGATIVE) BARBITURATE NEGATIVE (NEGATIVE) BENZODIAZEPINE NEGATIVE (NEGATIVE) CANNABINOID POSITIVE H (NEGATIVE) COCAINE NEGATIVE (NEGATIVE) ECSTASY NEGATIVE (NEGATIVE) METHADONE NEGATIVE (NEGATIVE) OPIATE NEGATIVE (NEGATIVE) The urine drug screen is a qualitative screening test fordrug overdose and abuse. All screen results should beconsidered as presumptive.Drugs screened for are as follows:BenzodiazepinesCocaineAmphetamines/MetamphetaminesTHC (Tetrahydrocannabinol)OpiatesBarbituratesEcstasyMethadonePositive results are unconfirmed. For confirmation, notifythe lab for the specimen to be sent to the reference lab.All confirmations must be performed by a differentmethodology.The ingestion of natural herbal and plant productscontaining Ephedra/Ephedra metabolites can produce in urineone or more substances capable of cross reacting withamphetamine/methamphetamine immunoassays. These testsprovide a preliminary result only. A more specificalternative chemical method must be used to obtain aconfirmed analytical result. CMP: (TIANA: 08/20/2016 20:07) ( MsgRcvd 08/20/2016 20:51) Final results Test Result Flag Units (Reference) GLUCOSE 88 mg/dL (70-110) BUN 7 mg/dL (7-18) CREATININE 0.8 mg/dL (0.6-1.3) Estimated GFR >60 mL/min Estimated GFR- >60 mL/min Note: Persistent reduction over 3 months in eGFR<60 mL/min/1.73 m2 defines CKD. Patients with eGFR values>=60 mL/min/1.73 m2 may also have CKD if evidence ofpersistent proteinuria. Additional information may be foundat www.kidney.org. SODIUM 142 mmol/L (136-145) POTASSIUM 3.9 mmol/L (3.5-5.1) CHLORIDE 105 mmol/L (98-107) CARBON DIOXIDE 28 mmol/L (21-32) CALCIUM 8.7 mg/dL (8.5-10.1) TOTAL PROTEIN 7.1 g/dL (6.4-8.2) ALBUMIN 3.6 g/dL (3.3-5.0) BILIRUBIN, TOTAL 0.4 mg/dL (0.0-1.0) ALKALINE PHOSPHATASE 44 L U/L (46-116) AST (SGOT) 18 U/L (15-37) ALT (SGPT) 39 U/L (12-78) . PROGRESS AND PROCEDURES Course of Care: [facility] Ativan 0.5 mg IV. 21:59 08/20/16. RN reports another seizure. Evaluation shows patient talking to staff as she is having an intentional shaking spell. The periodicity is not correct for a seizure. Ativan 0.5 mg IV Patient is stable. Symptoms much better. Patient/family counseled. Disposition: Discharged. Condition: stable. CLINICAL IMPRESSION Substance abuse problems: abuse of cannabis. Pseudoseizures. INSTRUCTIONS No driving or operating machinery until well. Rest. Warnings: Further evaluation is necessary. GENERAL WARNINGS: Return or contact your physician immediately if your condition worsens or changes unexpectedly, if not improving as expected, or if other problems arise. Your Current Medications: CONTINUE TAKING THE FOLLOWING MEDICATIONS: Minipress Oral. Nortriptyline HCl Oral. Robaxin Oral. Follow-up: Follow up with your doctor in one week. Call for an appointment. Understanding of the discharge instructions verbalized by patient. Discharge instructions reviewed with and understanding was verbalized by neighbor. (Electronically signed by Josr Raymond MD 08/21/2016 20:42)
--- NOTE | 2016-08-20 23:56 | ED ORDER SUMMARY ---
..... Patient: GABRIELA KNOX OrderSheet [facility] VisitID: [id number] [place] [address] 21y, F Registration Date/Time: 08/20/2016 ORDER SHEET Weight: 72.5 kg (stated) Allergies: No Known Drug Allergy GENERAL ORDERS: CT Head wo Cont Urgent (20:08/20/2016 Hao Carrillo) (Ack 20:35 AMcQuoid ER Tech1) (21:17 RFay) CBC w Diff Urgent (:08/20/2016 Hao Carrillo) (Ack 20:35 AMcQuoid ER Tech1) (22:18 HSoule) CMP Urgent (:08/20/2016 Hao Carrillo) (Ack 20:35 AMcQuoid ER Tech1) (22:18 HSoule) UA-Culture if indicated Urgent (:08/20/2016 Hao Carrillo) (Ack 20:35 AMcQuoid ER Tech1) (23:53 HSoule) Urine Urgent (20:08/20/2016 Hao Carrillo) (Ack 20:35 AMcQuoid ER Tech1) (23:53 HSoule) Pulse oximeter (:08/20/2016 Hao Carrillo) (Ack 20:35 AMcQuoid ER Tech1) (21:19 HSoule) Seizure Precautions (:08/20/2016 Hao Carrillo) (Ack 20:35 AMcQuoid ER Tech1) (21:19 HSoule) Urine Drug Screen Urgent (:08/20/2016 Joselyn LI) (Ack 23:04 AMcQuoid ER Tech1) (23:53 HSoule) MEDICATION ORDERS: IV FLUIDS: Ativan IV 0.5 mg (HIGH ALERT MEDICATION, NOW) (:08/20/2016 Hao Carrillo) (Ack 21:19 HSoule) (21:23 HSoule) IV Saline Lock (:08/20/2016 Hao Carrillo) (21:19 HSoule) Ativan IV 0.5 mg (NOW) (22:00 08/20/2016 Joselyn LI) (22:01 Mavis) ORDER SHEET NOTES: [Electronically signed by Heather Antonio (03:06 08/21/2016)] [Electronically signed by Josr Raymond MD (20:42 08/21/2016)] [Electronically locked/signed by Heather Antonio (03:06 08/21/2016)]
--- NOTE | 2016-08-20 23:56 | ED NURSING NOTES ---
Clinical Report - Nurses [facility] [address] [place] [address] 08/20/2016 19:59 [id number] Triage time 20:04 Aug 20 2016. Acuity: LEVEL 3. Chief Complaint: SEIZURES (two episodes) and PASSED OUT. SEPSIS SCREEN: Sepsis Screen: negative. Negative (no infection suspected/documented). JALIL COMA SCORE: Jalil Coma Scale: 15- eyes open spontaneously (4); best verbal response- oriented x 4 (5); best motor response- obeys commands (6). --20:10 Heather Antonio 20:04 08/20/16. BP: 126/86. HR: 76. RR: 20. O2 saturation: 99% on room air. Temp: 99 F (oral). Pain level now: 09/28. --20:10 Heather Antonio. Weight: 72.5 kg stated. Height/Length: 64 inches Per Patient. BMI: 27.5. --20:10 Heather Antonio. Medications Minipress Oral. --20:07 Heather Antonio Robaxin Oral. --20:07 Heather Antonio Nortriptyline HCl Oral. --20:08 Heather Antonio. Medication/allergy information source: the patient. --20:10 Heather Antonio. Allergies No Known Drug Allergy. --20:08 Heather Antonio. History Arrived by private vehicle. Historian: patient. Accompanied by family. Primary physician (doctor elizabeth). This occurred today. Patient was witnessed to be last known well (2 PM). ( Patient reports that she had a seizure today at 2 pm. She reports a few hours later she had another one in which she lost consciousness and hit her head. Her family reports that she was acting strange hours after the seizure. She called her family doctor and they advised her to come to the ER. She states she had one on Sunday as well.). PAST MEDICAL HX: Immunizations: up-to-date. Last normal menstrual period now. SOCIAL HX: Light tobacco smoker (cigarette)- less than 1/2 a pack per day. History of drug use: marijuana. No alcohol use. No infectious disease exposure. ABUSE ASSESSMENT: No report of abuse. FALL RISK ASSESSMENT: Fall risk assessment completed. No fall risk identified. NUTRITIONAL RISK ASSESSMENT: The nutritional risk assessment revealed no deficiencies. FUNCTIONAL ASSESSMENT: Functional assessment: no impairments noted. LEARNING NEEDS ASSESSMENT: The learning needs assessment revealed no barriers. SKIN INTEGRITY ASSESSMENT: Skin integrity risk assessment completed. No skin integrity risk identified. --20:10 Heather Antonio. PROBLEMS: Vaginal Bleeding. PTSD. Seizure Disorder. Seizure. Syncope. Urinary Calculi. UTI - Urinary Tract Infection. Asthma. PID. --20:08 Heather Antonio. ADDITIONAL SURGERIES: Cyst Removed from skull. Hernia Repair. Inguinal Hernia Repair. --20:08 Heather Antonio. Interventions ID band on patient. To treatment room. --20:10 Heather Antonio. PHYSICAL ASSESSMENT Ambulatory to room. Patient gowned. GENERAL / NEURO / PSYCH: Alert. Oriented X 4. Appears anxious. Speech within normal limits. HEENT: No facial asymmetry noted. Mucous membranes are pink. RESPIRATORY: Respirations not labored. CVS: Normal sinus rhythm noted. GI / : Abdomen soft and nontender. SKIN: Skin is warm and dry. --20:11 Heather Antonio. NURSING PROGRESS NOTES Pulse oximeter and NIBP monitor placed on patient. Patient gowned. Reassurance given to the patient. Seizure precautions initiated: side rails up x2 and padded, suction at bedside, patient in view of nurse's station and call snow in reach. Patient identifiers checked. Call light placed in reach. Side rails up x 2. Bed placed in lowest position. Brakes of bed on. Patient ready for evaluation- chart flagged and ED physician notified. --20:12 Heather Antonio 20:12 08/20/2016 Site #1 started via IV in the left antecubital space with an 20g angiocath, with aseptic technique and good blood return; one attempt. Blood drawn: rainbow set. Labeled in the presence of the patient and sent to the lab. Saline lock flushed with 10 mL saline. --20:12 Heather Antonio Patient ID band checked for patient name and birthdate: patient confirmed. Blood samples drawn from the left antecubital space peripheral IV site with Vacutainer by nurse ; labeled in presence of the patient and sent to lab: robinson set. Line flushed with 10 mL normal saline post blood draw. --20:13 Heather Antonio 20:52 Patient contact made, no voiced questions or concerns at this time. Reason for wait provided. --21:01 McQuoid, Ophelia, ER Tech1 21:22 08/20/16. BP: 110/48. HR: 60. RR: 20. O2 saturation: 100% on room air. Pain level now: 09/28. --21:23 Heather Antonio Seizure precautions maintained. The patient reports no complaints. GENERAL / NEURO / PSYCH: Alert. Oriented X 4. RESPIRATORY: No respiratory distress. SKIN: Skin is warm and dry. --21:23 Heather Antonio 21:23 08/20/2016 Ativan (LORazepam) IVP 0.5 mg given over 1 minute(s) via site #1. Allergies verified, confirmed 5 rights and sedative warning given to the patient and patient's family. IV patency established. IV site checked: no pain, redness, or swelling. IV flushed thoroughly pre- and post-medication administration. IVP given by RN. --21:23 Heather Antonio ( pt having "shaking episode" had asked friend to record episodes pt was talking to me through episode. eyes closed then peeked through one eye at me and quickly closed it. told pt to take slow deep breaths and and pt acknowledge and tremors stopped. pt stated she was having seizures.). --21:57 Tarsha Mota R.N. Two patient identifiers checked. Call light placed in reach. Side rails up x 2. Bed placed in lowest position. Brakes of bed on. --22:00 Tarsha Mota R.N. 21:59 08/20/16. BP: 111/69 taken on the left arm, while lying. HR: 82 (regular and normal rate). RR: 18 (regular and unlabored). O2 saturation: 95% on room air. Temp: deferred. Pain level now: 08/28. --22:00 Tarsha Mota R.N. Seizure precautions maintained: side rails up x2 and padded, family at bedside, patient in view of nurse's station and call snow in reach. --22:00 Tarsha Mota R.N. 21:51 08/20/2016 Ativan (LORazepam) IVP 0.5 mg given over 1 minute(s) via site #1. Allergies verified, confirmed 5 rights and sedative warning given to the patient and patient's family. IV patency established. IV site checked: no pain, redness, or swelling. IV flushed thoroughly pre- and post-medication administration. IVP given by RN. --22:01 Heather Antonio ( Provider called to bedside for patient "seizure activity". Provider orders in CPOE for ativan. Patient airway maintained during seizure, patient respirations normal and regular during episode, patient skin color normal and pink.). --22:14 Heather Antonio The patient reports no complaints. GENERAL / NEURO / PSYCH: Alert. Oriented X 4. RESPIRATORY: No respiratory distress. SKIN: Skin is warm and dry. --22:40 Heather Antonio 22:39 08/20/16. BP: 108/56. HR: 63. RR: 20. O2 saturation: 96% on room air. --22:40 Heather Antonio ( Patient assisted up to restroom and instructed on obtaining urine sample.). --23:08 Heather Antonio Patient ID band checked for patient name and birthdate: patient confirmed. Instructions provided to collect clean catch urine and patient verbalized understanding. Clean catch urine collected with return of yellow-colored clear urine; odor is normal; sample sent to lab for urinalysis. Specimen labeled in the presence of the patient. --23:15 Bobbi Cartwright 23:52 08/20/16. BP: 101/50. HR: 66. RR: 20. O2 saturation: 100% on room air. Pain level now: 09/28. --23:52 Heather Antonio. DISPOSITION / DISCHARGE 00:02 08/21/16. Condition at departure: stable. The goals identified in the patient's plan of care were met. No learning barriers present. Discharge instructions provided and reviewed with the patient. Reviewed need for increased fluid intake. Patient verbalized understanding. Written instructions provided in [place]. ( Follow up with your doctor in one week. Drink plenty of fluids and rest. Patient verbalized understanding and had no questions at this time.). The patient was discharged by the physician. She was discharged home and accompanied by sign out clerk. She left the Emergency Department ambulatory and via private vehicle. Commercial Trailer Truck Driver driving. ( See progress notes for discharge vitals.). FALL RISK ASSESSMENT: Fall risk assessment completed. No fall risk identified. --03:02 Heather Antonio 03:00 08/21/2016 Site #1 removed upon discharge. Catheter intact. Bandaid applied. --03:02 Heather Antonio. Locked/Released at 08/21/2016 3:06 by Heather Antonio,
--- NOTE | 2016-08-20 23:56 | ED ORDER SUMMARY ---
..... Patient: GABRIELA KNOX OrderSheet [facility] VisitID: [id number] [place] [address] 21y, F Registration Date/Time: 08/20/2016 ORDER SHEET Weight: 72.5 kg (stated) Allergies: No Known Drug Allergy GENERAL ORDERS: CT Head wo Cont Urgent (20:08/20/2016 Hao Carrillo) (Ack 20:35 AMcQuoid ER Tech1) (21:17 RFay) CBC w Diff Urgent (:08/20/2016 Hao Carrillo) (Ack 20:35 AMcQuoid ER Tech1) (22:18 HSoule) CMP Urgent (:08/20/2016 Hao Carrillo) (Ack 20:35 AMcQuoid ER Tech1) (22:18 HSoule) UA-Culture if indicated Urgent (:08/20/2016 Hao Carrillo) (Ack 20:35 AMcQuoid ER Tech1) (23:53 HSoule) Urine Urgent (20:08/20/2016 Hao Carrillo) (Ack 20:35 AMcQuoid ER Tech1) (23:53 HSoule) Pulse oximeter (:08/20/2016 Hao Carrillo) (Ack 20:35 AMcQuoid ER Tech1) (21:19 HSoule) Seizure Precautions (:08/20/2016 Hao Carrillo) (Ack 20:35 AMcQuoid ER Tech1) (21:19 HSoule) Urine Drug Screen Urgent (:08/20/2016 Joselyn LI) (Ack 23:04 AMcQuoid ER Tech1) (23:53 HSoule) MEDICATION ORDERS: IV FLUIDS: Ativan IV 0.5 mg (HIGH ALERT MEDICATION, NOW) (:08/20/2016 Hao Carrillo) (Ack 21:19 HSoule) (21:23 HSoule) IV Saline Lock (:08/20/2016 Hao Carrillo) (21:19 HSoule) Ativan IV 0.5 mg (NOW) (22:00 08/20/2016 Joselyn LI) (22:01 Mavis) ORDER SHEET NOTES: [Electronically signed by Heather Antonio (03:06 08/21/2016)] [Electronically signed by Josr Raymond MD (20:42 08/21/2016)] [Electronically locked/signed by Heather Antonio (03:06 08/21/2016)]
--- NOTE | 2016-08-21 20:42 | ED MAR SUMMARY ---
..... Medication Administration Record [facility] [address] [place] [address] Patient: GABRIELA KNOX Visit ID: [id number] 21y, F Weight: 72.5 kg Height/Length: 64 in BMI: 27.5 ALLERGIES: No Known Drug Allergy Given 21:23 08/20/2016 Heather Antonio, Medication Administered: ATIVAN [IVP] (LORAZEPAM), Dose: 0.5 mg IVP over 1 minute(s), Site: #1 left AC. Medication Ordered: Ativan IV 0.5 mg (HIGH ALERT MEDICATION, NOW). Given 21:08/20/2016 Heather Antonio, Medication Administered: ATIVAN [IVP] (LORAZEPAM), Dose: 0.5 mg IVP over 1 minute(s), Site: #1 left AC. Medication Ordered: Ativan IV 0.5 mg (NOW).
--- NOTE | 2016-08-21 20:42 | ED DISCHARGE INSTRUCTIONS ---
Patient: GABRIELA KNOX General Instructions [facility] VisitID: [id number] [place] [address] 21y, F Registration Date/Time: 08/20/2016 Substance abuse problems: abuse of cannabis. Pseudoseizures. INSTRUCTIONS No driving or operating machinery until well. Rest. Warnings: Further evaluation is necessary. GENERAL WARNINGS: Return or contact your physician immediately if your condition worsens or changes unexpectedly, if not improving as expected, or if other problems arise. Your Current Medications: CONTINUE TAKING THE FOLLOWING MEDICATIONS: Minipress Oral. Nortriptyline HCl Oral. Robaxin Oral. Follow-up: Follow up with your doctor in one week. Call for an appointment. Understanding of the discharge instructions verbalized by patient. Discharge instructions reviewed with and understanding was verbalized by neighbor. No driving or operating machinery until well. Rest. (Electronically signed by Josr Raymond MD 08/21/2016 20:42)
--- NOTE | 2016-08-21 20:42 | ED MED RECONCILIATION SUMMARY ---
Patient: CLAUDEAVERY GABRIELA Dumont Medication Reconciliation Report [facility] VisitID: [id number] [address] [place] [address] 21y, F Registration Date/Time: 08/20/2016 Weight: 72.5 kg Height/Length: 64 in. BMI: 27.5 ALLERGIES: No Known Drug Allergy The patient's Home Medications are listed below: CONTINUE TAKING THE FOLLOWING MEDICATIONS: Minipress Oral Nortriptyline HCl Oral Robaxin Oral The source(s) of the original Home Medication information: patient The following Medications were given to the patient in the Emergency Department: Ativan [IVP] IVP 0.5 mg, administered: 08/20/2016 9:23:00 PM Ativan [IVP] IVP 0.5 mg, administered: 08/20/2016 9:51:00 PM The following Medications were prescribed to the patient: None.
--- NOTE | 2016-08-21 20:42 | ED DISCHARGE INSTRUCTIONS ---
Patient: GABRIELA KNOX General Instructions [facility] VisitID: [id number] [address] [address] 21y, F Registration Date/Time: 08/20/2016 Substance abuse problems: abuse of cannabis. Pseudoseizures. INSTRUCTIONS No driving or operating machinery until well. Rest. Warnings: Further evaluation is necessary. GENERAL WARNINGS: Return or contact your physician immediately if your condition worsens or changes unexpectedly, if not improving as expected, or if other problems arise. Your Current Medications: CONTINUE TAKING THE FOLLOWING MEDICATIONS: Minipress Oral. Nortriptyline HCl Oral. Robaxin Oral. Follow-up: Follow up with your doctor in one week. Call for an appointment. Understanding of the discharge instructions verbalized by patient. Discharge instructions reviewed with and understanding was verbalized by neighbor. No driving or operating machinery until well. Rest. (Electronically signed by Josr Raymond MD 08/21/2016 20:42)
--- NOTE | 2016-08-21 20:42 | ED MAR SUMMARY ---
..... Medication Administration Record [facility] [address] [place] [address] Patient: GABRIELA KNOX Visit ID: [id number] 21y, F Weight: 72.5 kg Height/Length: 64 in BMI: 27.5 ALLERGIES: No Known Drug Allergy Given 21:23 08/20/2016 Heather Antonio, Medication Administered: ATIVAN [IVP] (LORAZEPAM), Dose: 0.5 mg IVP over 1 minute(s), Site: #1 left AC. Medication Ordered: Ativan IV 0.5 mg (HIGH ALERT MEDICATION, NOW). Given 21:08/20/2016 Heather Antonio, Medication Administered: ATIVAN [IVP] (LORAZEPAM), Dose: 0.5 mg IVP over 1 minute(s), Site: #1 left AC. Medication Ordered: Ativan IV 0.5 mg (NOW).
--- NOTE | 2016-08-21 20:42 | ED MED RECONCILIATION SUMMARY ---
Patient: CLAUDEAVERY GABRIELA Dumont Medication Reconciliation Report [facility] VisitID: [id number] [address] [place] [address] 21y, F Registration Date/Time: 08/20/2016 Weight: 72.5 kg Height/Length: 64 in. BMI: 27.5 ALLERGIES: No Known Drug Allergy The patient's Home Medications are listed below: CONTINUE TAKING THE FOLLOWING MEDICATIONS: Minipress Oral Nortriptyline HCl Oral Robaxin Oral The source(s) of the original Home Medication information: patient The following Medications were given to the patient in the Emergency Department: Ativan [IVP] IVP 0.5 mg, administered: 08/20/2016 9:23:00 PM Ativan [IVP] IVP 0.5 mg, administered: 08/20/2016 9:51:00 PM The following Medications were prescribed to the patient: None.
== END 2016-08-21 00:04 | disposition home or self-care (01) ==
LOC: ED SRH 20:00
DX: R56.9 Unspecified convulsions (principal); F12.10 Cannabis abuse, uncomplicated
CPT/HCPCS: 90004; 90100; 92760; 92761; 92762; 92763; 92764; 92765; 92766; 92767; 93070; 95059